=== PATIENT | male | born 1945 | race Caucasian/White ===

== ENCOUNTER 2021-09-20 07:37 | Outpatient (CLI) | payer MEDICARE, OTHER, SELFPAY ==
--- NOTE | ~2021-09-20 | CT_ITS ---
EXAMINATION: CT brain wo/w con DATE: 09/20/2021 08:06 INDICATION: Other symptoms and signs involving cognitive function. TECHNIQUE: Computed tomography (CT) of the head was performed without and with 100 mL Omnipaque 350 i ntravenous contrast. The mA was adjusted according to patient size. Iterative reconstruction techniqu e was employed. The dose-length product was 1210.67 mGy-cm. COMPARISON: None FINDINGS: There is no intracranial hemorrhage, acute infarction, or abnormal intracranial mass lesion . The ventricles are normal in size. There are likely changes of ocular lens replacement surgeries. T here is mucosal thickening in the paranasal sinuses, worst in left maxillary sinus. There is thickeni ng and sclerosis of the naik of left maxillary sinus, consistent with chronic sinusitis. The mastoid air cells are normal. IMPRESSION: 1. Normal brain. 2. Chronic sinusitis. Reviewed, dictated and finalized at location A.
[2021-09-20 07:58] LABS: Estimated Glomerular Filt Rate 45
== END 2021-09-20 07:38 | disposition home or self-care (01) ==
PROVIDERS: PCP Internal Medicine; Visit Provider Internal Medicine
DX: G31.84 Mild cognitive impairment of uncertain or unknown etiology (principal); J32.8 Other chronic sinusitis
CPT/HCPCS: 70470; Q9967

== ENCOUNTER 2023-01-08 10:42 | Outpatient (CLI) | payer MEDICARE, OTHER, SELFPAY ==
--- NOTE | ~2023-01-08 | CT_ITS ---
EXAMINATION:CT chest high resolution wo nm DATE: 01/08/2023 11:12 INDICATION: Abnormal weight loss. TECHNIQUE: Computed tomography (CT) of the chest was performed without intravenous contrast. Automate d exposure control and iterative reconstruction technique were employed. The dose-length product (DLP ) was 378.86 mGy-cm. COMPARISON: Thoracic spine CT 08/08/2017 FINDINGS: There is complete collapse of left lung. There is extensive mucous plugging in left lung. T here is extensive mucous plugging in right lung. There are tree-in-bud opacities in right lung. There is a small left pleural effusion. Cardiomegaly is noted. There are coronary artery calcifications. N o pericardial effusion. There is a left chest wall pacer with leads in the right atrium and right ajith tricle. There are bilateral shoulder arthroplasties. There are gallstones in the gallbladder, which i s contracted. Calcifications in the liver consistent with old granulomatous disease. There is severe cervical spondylosis and mild thoracic spondylosis. IMPRESSION: 1. Extensive mucous plugging in the lungs with complete collapse of left lung. 2. Mild pneumonia in right lung. 3. Small left pleural effusion. Reviewed, dictated and finalized at location A.
== END 2023-01-08 10:43 ==
PROVIDERS: Visit Provider Nurse Practitioner Family
DX: R63.4 Abnormal weight loss (principal); Z87.891 Personal history of nicotine dependence; J90 Pleural effusion, not elsewhere classified; J18.9 Pneumonia, unspecified organism
CPT/HCPCS: 71250